=== PATIENT | female | born 1930 | race Caucasian/White ===

== ENCOUNTER 2017-01-28 20:19 | Inpatient (IN) | payer MEDICARE ==
[~2017-01-28] VITALS: Ht 157.5 cm; Wt 113.4 kg
[2017-01-28 22:18] LABS: APPEARANCE CLEAR (CLEAR); BILIRUBIN NEGATIVE (NEGATIVE); COLOR YELLOW (YELLOW); GLUCOSE NEGATIVE (NEGATIVE); KETONE NEGATIVE (NEGATIVE); LEUKOCYTE ESTERASE NEGATIVE (NEGATIVE); NITRITE NEGATIVE (NEGATIVE); PROTEIN NEGATIVE (NEGATIVE); UROBILINOGEN NORMAL (NORMAL)
[2017-01-29] MEDS ORDERED: MULTIPLE VITAMI1 TA1 PO (00:37)
[2017-01-29] MEDS ORDERED: BUMETANIDE0.5 MG PO (00:37)
[2017-01-29] MEDS ORDERED: VITAMIN D31000 UNI2 PO (00:37)
[2017-01-29] MEDS ORDERED: SENNA PLUS TA1 UDTAB PO (00:38)
[2017-01-29] MEDS ORDERED: SYNTHROID200 MC1 PO (00:39)
[2017-01-29] MEDS ORDERED: CALCIUM 500 +1 EAC3 PO (00:39)
[2017-01-29] MEDS ORDERED: KLOR-CON M2020 MEQ PO (00:39)
[2017-01-29] MEDS ORDERED: HYDROCODON-ACE1 EAC7 PO (00:40)
[2017-01-29] MEDS ORDERED: REMERON15 MG PO (00:41)
[2017-01-29] MEDS ORDERED: XALATAN 0.0052.5 ML EACH EYE (00:41)
[2017-01-29] MEDS ORDERED: ACETAMINOPHEN325 MG PO (00:42)
[2017-01-29 00:43] VITALS: BP 112/80; BMI 45.8
--- NOTE | 2017-01-29 01:39 | NUR ---
PT ARRIVED ON UNIT VIA STRETCHER ESCORTED BY ER NURSE. TRANSFERRED TO BED AND POSITIONED FOR COMFORT. O2 IN USE AT 2L VIA NC. PT NON-VERBAL. IV IN LEFT HAND WITH D5W INFUSING AT 100 ML / HR. WILL MONITOR CLOSLEY FOR NEEDS. SIDE RAILS UP X2 FOR SAFETY.
[2017-01-29 06:49] LABS: ANION GAP 11.8 mmol/L (8-16); CALCIUM 7.7 mg/dL (8.5-10.1); CARBON DIOXIDE 27.5 mmol/L (21.0-32.0); CREATININE - SERUM 1.3 mg/dL (0.6-1.3); POTASSIUM - SERUM 3.3 mmol/L (3.5-5.1)
--- NOTE | 2017-01-29 07:20 | NUR ---
CALLED THE ANSWERING SERVICE AT THIS TIME D/T CRITICALLY HIGH GLUCOSE OF 591. WILL AWAIT RETURN PHONE CALL FOR NEW ORDERS.
[2017-01-29 07:54] VITALS: BP 132/58
--- NOTE | 2017-01-29 08:35 | NUR ---
NEW ORDERS RECEIVED FROM FRANCISCO JAVIER HOLLAND AT THIS TIME. DAUGHTER AND SON IN LAW AT BEDSIDE. NEW ORDERS STARTED PER PLAN OF CARE. PT REMAINS CLEAN AND DRY. CASSIDY MAT ALARM IN USE FOR FALL PRECAUTIONS. ASSESSMENT PERFORMED PER FLOWSHEET. ELECTROLYTE PROTOCOL INITIATED.
--- NOTE | 2017-01-29 08:37 | NUR ---
DID NOT HANG IV FLUIDS D/T BLOOD SUGAR OF 591.
[2017-01-29 09:05] LABS: MAGNESIUM - SERUM 2.1 mg/dL (1.8-2.4); PHOSPHOROUS 3.3 mg/dL (2.5-4.9)
[2017-01-29 09:53] LABS: BASOPHILS 0.4 % (0-2); EOSINOPHILS 2.4 % (0-7); HEMATOCRIT 54.6 % (36.0-48.0); HEMOGLOBIN 17.4 g/dL (12-16); IMMATURE GRANULOCYTES 0.3 % (0-5); LYMPHOCYTES 21.9 % (15-50); MCH 32.1 pg (26.0-34.0); MCHC 31.9 g/dL (31.0-37.0); MCV 100.7 fL (80.0-100.0); MEAN PLATELET VOLUME 11.3 fL (7.4-10.4); MONOCYTES 11.8 % (2-11); NEUTROPHILS 63.2 % (40-80); PLATELET COUNT 129 10x3/uL (130-400); RBC 5.42 10x6/uL (4.00-5.40); WBC 11.2 10x3/uL (4.8-10.8)
[2017-01-29 10:02] LABS: HEMOGLOBIN A1C 6.1 % (4.8-6.0)
[2017-01-29 12:19] VITALS: BP 127/70
--- NOTE | 2017-01-29 12:35 | NUR ---
INCONTINENCE CARE PROVIDED AT THIS TIME. SON IN LAW REMAINS AT BEDSIDE. PT ALERT TO VOICES. POSITIONED ON RIGHT SIDE. SCD'S ON AND IN WORKING ORDER. CASSIDY MAT ALARM IN USE. WILL CONTINUE WITH PLAN OF CARE.
[2017-01-29 13:24] VITALS: Ht 157.5 cm; Wt 113.4 kg
--- NOTE | 2017-01-29 14:25 | NUR ---
Patient Name: MARIANO MCCRARY Admission Status: ER Accout number: [id number] Admission Date: 01-28-2017 : 1928 Admission Diagnosis:ALTERED MENTAL STATUS, UNSPECIFIED Attending: LE Current LOS: 1 Anticipated DC Date: 02-02-2017 Planned Disposition: Nursing Facility LAN Cert Primary Insurance: [place]ID [place] Discharge Planning Comments: CM MET CALLED PATIENTS SON IN LAW (LUDIN) REGARDING D/C NEEDS AND PLANS. PATIENT LIV[facility] AT THE [facility] SINCE [facility]UG[facility]. PATIENT IS BED RIDDEN UNLESS IN MARIVEL CHAIR (ONLY IF ALERT ENOUGH). PATIENT IS TOTALLY DEPENDENT FOR HER CARE. PATIENT WILL RETURN TO FACILITY AT DISCHARGE. PCP IS DR. MASON AT FACILITY AND PHARMACY IS IN HOUSE. CM WILL CONTINUE TO FOLLOW PATEINT WITH D/C NEEDS AND PLANS. PCP DR. MASON IN HOUSE PHARMACY [facility] ([place] ) [phone] System Analyst: Venessa Sampson Is the patient Alert and Oriented? No 0 * How many steps to enter\exit or inside your home? 0 0 * PCP DR. MASON 0 * Pharmacy IN HOUSE 0 * Preadmission Environment Halfway Halfway 0 * Facility Name [facility] 0 * ADLs Total Dependent 0 * Other Equipment MARIVEL CHAIR 0 * List name and contact numbers for known caregivers / representatives who currently or will assist patient after discharge: LUDIN ([place]) [phone] * Community resources currently utilized None 0 * Additional services required to return to the preadmission environment? Yes 0 * Can the patient safely return to the preadmission environment? Yes 0 * Has this patient been hospitalized within the prior 30 days at any hospital? No 0 Grand Total: 0
[2017-01-29 15:37] VITALS: BP 129/69
[2017-01-29 20:00] VITALS: BP 125/75
[2017-01-30 00:05] VITALS: BP 114/59
[2017-01-30 04:00] VITALS: BP 105/61
[2017-01-30 06:41] LABS: BASOPHILS 0.6 % (0-2); EOSINOPHILS 4.4 % (0-7); HEMATOCRIT 47.3 % (36.0-48.0); HEMOGLOBIN 14.8 g/dL (12-16); IMMATURE GRANULOCYTES 0.3 % (0-5); LYMPHOCYTES 24.8 % (15-50); MCH 31.7 pg (26.0-34.0); MCHC 31.3 g/dL (31.0-37.0); MCV 101.3 fL (80.0-100.0); MEAN PLATELET VOLUME 11.2 fL (7.4-10.4); NEUTROPHILS 61.9 % (40-80); PLATELET COUNT 124 10x3/uL (130-400); RBC 4.67 10x6/uL (4.00-5.40); RDW 15.9 % (11.5-14.5)
[2017-01-30 06:53] LABS: ALBUMIN 2.9 g/dL (3.4-5.0); ANION GAP 9.4 mmol/L (8-16); BILIRUBIN - TOTAL 0.56 mg/dL (0.2-1.3); CALCIUM 8.1 mg/dL (8.5-10.1); CARBON DIOXIDE 27.3 mmol/L (21.0-32.0); POTASSIUM - SERUM 3.7 mmol/L (3.5-5.1); PROTEIN - SERUM 6.2 g/dL (6.4-8.2)
--- NOTE | 2017-01-30 07:45 | NUR ---
ASSESSMENT PER FLOW SHEET.PT WITHOUT DISTRESS.CALL LIGHT IN REACH
--- NOTE | 2017-01-30 07:45 | NUR ---
ASSESSMENT PER FLOW SHEET.PT WITHOUT DISTRESS.REPOSITIONED.FALL PREVENTION IN PROGRESS
[2017-01-30 08:11] VITALS: BP 125/75
--- NOTE | 2017-01-30 10:32 | NUR ---
CM REASSESSMENT NOTE: PATIENT IS DISCHARGING HOME TODAY- DRIVING. DENIES HOME HEALTH OR ANY OTHER NEEDS FOR DISCHARGE.
--- NOTE | 2017-01-30 10:41 | NUR ---
CM REASSESSMENT NOTE: PATIENT WILL DISCHARGE BY AMBULANCE TO THE [facility]. [facility] TO ADMIT ONCE AT [facility]. [facility]- [phone] [facility] - [phone]
--- NOTE | 2017-01-30 11:37 | NUR ---
CALL TO [facility] FOR TRANSPORT TO [facility]
--- NOTE | 2017-01-30 12:04 | NUR ---
CALL TO [facility].REPORT TO ANNABEL
--- NOTE | 2017-01-30 12:04 | NUR ---
LEFT UNIT VIS STRETCHER TO [employer]
== END 2017-01-30 12:08 | disposition home health service (06) | DRG 640 ==
LOC: D.ER 20:19 → D.MS 23:04
PROVIDERS: Emergency Medicine; ADMIT Family Medicine
DX: E87.0 Hyperosmolality and hypernatremia (principal); G93.41 Metabolic encephalopathy; F03.90 Unspecified dementia, unspecified severity, without behavioral disturbance, psychotic disturbance, mood disturbance, and anxiety; E03.9 Hypothyroidism, unspecified; Z66 Do not resuscitate; E86.0 Dehydration; E55.9 Vitamin D deficiency, unspecified; K59.00 Constipation, unspecified; H40.9 Unspecified glaucoma